=== PATIENT | male | born 1985 | race Caucasian/White ===

== ENCOUNTER 2022-10-12 19:58 | Emergency (ER) | payer BC ==
[2022-10-12 20:22] VITALS: BP 121/90; PULSE 63
[2022-10-12] MEDS: Lidocaine 1% with EPINEPHrine 1:100,000 50 ML MDV INFILT ONE (20:30)
[2022-10-12] MEDS: Diphtheria/Tetanus Toxoids,Adult (Td) 0.5 ML SDV IM ONE (20:50)
[2022-10-12] MEDS: Mupirocin Oint 22 GM Tube TOP ONE (20:57)
== END 2022-10-12 20:50 | disposition home or self-care (01) ==
LOC: LB.ED 19:58
DX: S61.011A Laceration without foreign body of right thumb without damage to nail, initial encounter (principal); Z88.0 Allergy status to penicillin; Z23 Encounter for immunization; W56.51XA Bitten by other fish, initial encounter; Y93.89 Activity, other specified
CPT/HCPCS: 12001; 90471; 90714; 99282; 99282-25